=== PATIENT | female | born 2000 | race Hispanic/Latino ===

== ENCOUNTER 2021-11-25 04:16 | Emergency (ER) | payer OTHER ==
[~2021-11-25] VITALS: Ht 160.7 cm; Wt 55.8 kg
[2021-11-25 04:41] LABS: AMPHETAMINES SCREEN,URINE NEGATIVE (NEGATIVE); PHENCYCLIDINE SCREEN,URINE NEGATIVE (NEGATIVE)
[2021-11-25 04:42] LABS: BENZODIAZEPINES SCREEN,URINE POSITIVE (NEGATIVE)
== END 2021-11-25 05:52 | disposition home or self-care (01) ==
LOC: ER 04:20
DX: R00.2 Palpitations (principal); J45.909 Unspecified asthma, uncomplicated
CPT/HCPCS: 71046; 80307; 81025; 93005; 99283